=== PATIENT | male | born 1945 | race American Indian/Alaskan Native ===

== ENCOUNTER 2021-05-02 11:11 | Inpatient (IN) | payer OTHER, MEDICARE ==
[2021-05-02] MEDS ORDERED: CEFTRIAXONE 1 GM in DEXTROSE 5%-WATER - 100 ML IVPB ONE (11:55)
[2021-05-02] MEDS ORDERED: DOXYCYCLINE HYCLATE 100 MG CAPSULE PO ONE ×2 (11:55→12:15)
[2021-05-02] MEDS ORDERED: CEFTRIAXONE 1 GM/50 ML BAG ONE ×2 (12:14→12:15)
[2021-05-02] MEDS ORDERED: SODIUM CHLORIDE 0.9% 500 ML INFUS.BAG IV ONE (12:16)
[2021-05-02 12:43] LABS: BASO % 0.7 % (0-2.0); EOS % 0.1 % (0-4.5); HEMATOCRIT 36.6 % (35.4-49); HEMOGLOBIN 12.2 GM/dL (11.7-16.9); LYMPH % 10.3 % (8-40); MCH 27.8 pg (25.7-33.7); MCHC 33.3 g/dl (32.0-35.9); MEAN CELL VOLUME 83.3 fl (80-96); MEAN PLT VOLUME 8.1 fl (7.5-11.1); MONO % 14.9 % (3.8-10.2); RBC 4.39 M/mm3 (4.00-5.60); RDW 14.8 % (11.9-15.9)
[2021-05-02 12:49] LABS: CALCIUM 8.4 mg/dL (8.5-10.1); EPI CELLS >36 /uL (0-25.1); HYALINE CASTS 68 /uL (0-3.1); URINE APPEARANCE TURBID; URINE BILIRUBIN 1+ (NEGATIVE); URINE COLOR ORANGE; URINE GLUCOSE (UA) NEGATIVE (NEGATIVE); URINE KETONE TRACE (NEGATIVE); URINE LEUK ESTERASE NEGATIVE (NEGATIVE); URINE NITRITE POSITIVE (NEGATIVE); URINE PROTEIN 2+ (NEGATIVE); URINE RBC 15 /uL (0-23.9); URINE WBC 32 /uL (0-25.8)
[2021-05-02 12:50] LABS: ALBUMIN 3.7 g/dl (3.4-5.0); BLOOD UREA NITROGEN 27.1 mg/dL (7-18)
[2021-05-02 12:53] LABS: CREATININE 1.5 mg/dL (0.55-1.3)
[2021-05-02 12:54] LABS: BILIRUBIN,TOTAL 3.5 mg/dL (0.2-1); TOT PROT 7.3 g/dl (6.4-8.2)
[2021-05-02] MEDS: SODIUM CHLORIDE 1,000 ML IV SCH (13:02)
[2021-05-02] MEDS ORDERED: AZITHROMYCIN 250 MG TABLET PO ONE (14:26)
[2021-05-02 14:29] LABS: PLATELET COUNT 66 10^3/uL (134-434)
[2021-05-02] MEDS ORDERED: ATOVAQUONE 750 MG/5 ML (UNIT-DOSE PACKAGING) PO ONE (14:30)
[2021-05-02] MEDS ORDERED: AZITHROMYCIN IVPB 500 MG/250 ML BAG IVPB ONE ×2 (14:39→14:42)
[2021-05-02 15:18] LABS: PLATELET ESTIMATE DECREASED
[2021-05-02 15:52] VITALS: BMI 23.3
[2021-05-02] MEDS ORDERED: ATOVAQUONE 750 MG/5 ML (UNIT-DOSE PACKAGING) PO SCH (16:30)
[2021-05-02 17:01] LABS: URINE BACTERIA 59.7 /uL (0-1359)
[2021-05-02] MEDS: ACETAMINOPHEN 325 MG TABLET (FP) PO PRN (17:48)
[2021-05-02] MEDS ORDERED: DOXYCYCLINE HYCLATE 100 MG VIAL ONE (20:45)
[2021-05-02] MEDS ORDERED: DEXTROSE 5%-WATER 100 ML IVPB ONE (20:45)
[2021-05-02] MEDS: DOXYCYCLINE INJECTION 100 MG in DEXTROSE 5%-WATER 100 ML IVPB SCH (21:18)
[2021-05-02] MEDS: guaiFENesin/D-M SUGAR-FREE/ACLHOL-FREE 118 ML BOTTLE PO PRN (21:18)
[2021-05-02] MEDS: ATOVAQUONE 750 MG/5 ML (UNIT-DOSE PACKAGING) PO SCH (22:06)
[2021-05-03] MEDS: LEVOTHYROXINE NA 88 MCG TABLET (FP) PO SCH (06:18)
[2021-05-03 06:47] LABS: HEMATOCRIT 27.3 % (35.4-49); HEMOGLOBIN 9.2 GM/dL (11.7-16.9); MCH 27.9 pg (25.7-33.7); MCHC 33.5 g/dl (32.0-35.9); MEAN CELL VOLUME 83.3 fl (80-96); MEAN PLT VOLUME 8.8 fl (7.5-11.1); PLATELET COUNT 55 10^3/uL (134-434); RBC 3.28 M/mm3 (4.00-5.60); RDW 15.1 % (11.9-15.9); WHITE BLOOD COUNT 4.5 K/mm3 (4.0-10.0)
[2021-05-03 07:10] LABS: CALCIUM 7.4 mg/dL (8.5-10.1)
[2021-05-03 07:13] LABS: BLOOD UREA NITROGEN 23.7 mg/dL (7-18)
[2021-05-03 07:14] LABS: CREATININE 1.2 mg/dL (0.55-1.3)
[2021-05-03 07:15] LABS: BILIRUBIN,TOTAL 1.8 mg/dL (0.2-1); TOT PROT 5.4 g/dl (6.4-8.2)
[2021-05-03 08:00] LABS: ALBUMIN 2.8 g/dl (3.4-5.0)
[2021-05-03] MEDS ORDERED: metoPROLOL SUCCINATE 25 MG TAB.SR.24H (FP) PO SCH (10:00)
[2021-05-03] MEDS ORDERED: DOXYCYCLINE HYCLATE 100 MG VIAL ONE ×2 (10:07→21:16)
[2021-05-03] MEDS ORDERED: DEXTROSE 5%-WATER 100 ML IVPB ONE ×2 (10:07→21:17)
[2021-05-03] MEDS: ATOVAQUONE 750 MG/5 ML (UNIT-DOSE PACKAGING) PO SCH ×2 (10:17→17:42)
[2021-05-03] MEDS: PANTOPRAZOLE 40 MG TABLET PO SCH (10:17)
[2021-05-03] MEDS: DOXYCYCLINE INJECTION 100 MG in DEXTROSE 5%-WATER 100 ML IVPB SCH ×2 (10:17→21:23)
[2021-05-03] MEDS: AZITHROMYCIN IVPB 500 MG/250 ML BAG IVPB SCH (10:18)
[2021-05-03] MEDS ORDERED: SODIUM CHLORIDE 0.9% 500 ML INFUS.BAG IV ONE (10:58)
[2021-05-03] MEDS ORDERED: PT OWN MED DRAWER 7, Y5N ONE ×2 (13:39→20:24)
[2021-05-03] MEDS ORDERED: LACTATED RINGERS SOLUTION 1000 ML INFUS.BAG IV ONE (15:12)
[2021-05-03] MEDS: LACTATED RINGERS SOLUTION 1,000 ML/1,000 ML INFUS.BAG IV SCH ×2 (15:40→22:57)
[2021-05-03] MEDS: SODIUM CHLORIDE 1,000 ML IV SCH (17:02)
[2021-05-03] MEDS: ACETAMINOPHEN 325 MG TABLET (FP) PO PRN (20:30)
[2021-05-03] MEDS: guaiFENesin/D-M SUGAR-FREE/ACLHOL-FREE 118 ML BOTTLE PO PRN (21:24)
[2021-05-04] MEDS: ACETAMINOPHEN 325 MG TABLET (FP) PO PRN ×2 (02:10→14:52)
[2021-05-04] MEDS: guaiFENesin/D-M SUGAR-FREE/ACLHOL-FREE 118 ML BOTTLE PO PRN ×2 (02:55→13:02)
[2021-05-04] MEDS: LACTATED RINGERS SOLUTION 1,000 ML/1,000 ML INFUS.BAG IV SCH ×2 (06:24→16:08)
[2021-05-04] MEDS: LEVOTHYROXINE NA 88 MCG TABLET (FP) PO SCH (06:24)
[2021-05-04] MEDS ORDERED: PT OWN MED DRAWER 7, Y5N ONE ×6 (06:50→21:31)
[2021-05-04 07:34] LABS: HEMATOCRIT 30.1 % (35.4-49); HEMOGLOBIN 9.9 GM/dL (11.7-16.9); MCH 27.9 pg (25.7-33.7); MEAN CELL VOLUME 84.4 fl (80-96); MEAN PLT VOLUME 9.3 fl (7.5-11.1); PLATELET COUNT 56 10^3/uL (134-434); RBC 3.57 M/mm3 (4.00-5.60); RDW 15.4 % (11.9-15.9); WHITE BLOOD COUNT 4.1 K/mm3 (4.0-10.0)
[2021-05-04 07:58] LABS: CALCIUM 7.5 mg/dL (8.5-10.1)
[2021-05-04 07:59] LABS: ALBUMIN 2.8 g/dl (3.4-5.0); BLOOD UREA NITROGEN 22.8 mg/dL (7-18)
[2021-05-04 08:02] LABS: CREATININE 1.1 mg/dL (0.55-1.3)
[2021-05-04 08:04] LABS: BILIRUBIN,TOTAL 2.2 mg/dL (0.2-1); TOT PROT 5.7 g/dl (6.4-8.2)
[2021-05-04] MEDS: ATOVAQUONE 750 MG/5 ML (UNIT-DOSE PACKAGING) PO SCH ×2 (09:17→16:58)
[2021-05-04] MEDS: AZITHROMYCIN IVPB 500 MG/250 ML BAG IVPB SCH (09:19)
[2021-05-04] MEDS ORDERED: DOXYCYCLINE HYCLATE 100 MG VIAL ONE ×2 (10:07→21:25)
[2021-05-04] MEDS ORDERED: DEXTROSE 5%-WATER 100 ML IVPB ONE ×2 (10:08→21:26)
[2021-05-04] MEDS: FOLIC ACID 1 MG TABLET (FP) PO SCH (10:14)
[2021-05-04] MEDS: PANTOPRAZOLE 40 MG TABLET PO SCH (10:14)
[2021-05-04] MEDS: DOXYCYCLINE INJECTION 100 MG in DEXTROSE 5%-WATER 100 ML IVPB SCH ×2 (10:14→21:28)
[2021-05-04] MEDS: MULTIVITAMINS (DAILY MVI) TABLET (FP) PO SCH (13:40)
[2021-05-04] MEDS: guaiFENesin/D-M SUGAR-FREE/ACLHOL-FREE 5 ML UNIT DOSE PO SCH (21:33)
[2021-05-05] MEDS: LACTATED RINGERS SOLUTION 1,000 ML/1,000 ML INFUS.BAG IV SCH ×3 (01:10→09:47)
[2021-05-05] MEDS: LEVOTHYROXINE NA 88 MCG TABLET (FP) PO SCH (06:25)
[2021-05-05 07:33] LABS: BASO % 0.7 % (0-2.0); EOS % 0.7 % (0-4.5); HEMATOCRIT 26.1 % (35.4-49); HEMOGLOBIN 8.6 GM/dL (11.7-16.9); LYMPH % 27.8 % (8-40); MCH 27.2 pg (25.7-33.7); MCHC 32.8 g/dl (32.0-35.9); MEAN PLT VOLUME 10.2 fl (7.5-11.1); MONO % 17.9 % (3.8-10.2); NEUT % 52.9 % (42.8-82.8); PLATELET COUNT 55 10^3/uL (134-434); RBC 3.14 M/mm3 (4.00-5.60); RDW 15.6 % (11.9-15.9); WHITE BLOOD COUNT 3.8 K/mm3 (4.0-10.0)
[2021-05-05 07:49] LABS: ALBUMIN 2.4 g/dl (3.4-5.0); BLOOD UREA NITROGEN 18.8 mg/dL (7-18); CALCIUM 7.5 mg/dL (8.5-10.1)
[2021-05-05 07:53] LABS: CREATININE 1.1 mg/dL (0.55-1.3)
[2021-05-05 07:54] LABS: BILIRUBIN,TOTAL 1.8 mg/dL (0.2-1); TOT PROT 5.2 g/dl (6.4-8.2)
[2021-05-05] MEDS: ATOVAQUONE 750 MG/5 ML (UNIT-DOSE PACKAGING) PO SCH ×2 (08:44→17:01)
[2021-05-05] MEDS ORDERED: DEXTROSE 5%-WATER 100 ML IVPB ONE ×2 (09:03→21:08)
[2021-05-05] MEDS ORDERED: DOXYCYCLINE HYCLATE 100 MG VIAL ONE ×2 (09:03→21:08)
[2021-05-05] MEDS: PANTOPRAZOLE 40 MG TABLET PO SCH (09:10)
[2021-05-05] MEDS: DOXYCYCLINE INJECTION 100 MG in DEXTROSE 5%-WATER 100 ML IVPB SCH ×2 (09:10→21:17)
[2021-05-05] MEDS: FOLIC ACID 1 MG TABLET (FP) PO SCH (09:10)
[2021-05-05] MEDS: MULTIVITAMINS (DAILY MVI) TABLET (FP) PO SCH (09:10)
[2021-05-05 09:40] LABS: ANISOCYTOSIS 0; MACROCYTOSIS 0; PLATELET ESTIMATE DECREASED
[2021-05-05] MEDS: guaiFENesin/D-M SUGAR-FREE/ACLHOL-FREE 5 ML UNIT DOSE PO SCH ×2 (09:48→21:17)
[2021-05-05] MEDS: AZITHROMYCIN IVPB 500 MG/250 ML BAG IVPB SCH (10:22)
[2021-05-06] MEDS: LEVOTHYROXINE NA 88 MCG TABLET (FP) PO SCH (06:06)
[2021-05-06 07:05] LABS: EOS % 2.9 % (0-4.5); HEMATOCRIT 28.3 % (35.4-49); HEMOGLOBIN 9.3 GM/dL (11.7-16.9); LYMPH % 31.6 % (8-40); MCH 27.2 pg (25.7-33.7); MCHC 32.8 g/dl (32.0-35.9); MEAN CELL VOLUME 83.1 fl (80-96); MEAN PLT VOLUME 9.3 fl (7.5-11.1); MONO % 17.9 % (3.8-10.2); NEUT % 46.6 % (42.8-82.8); PLATELET COUNT 72 10^3/uL (134-434); RBC 3.41 M/mm3 (4.00-5.60); RDW 15.9 % (11.9-15.9); RETICULOCYTES 1.11 % (0.5-1.5); WHITE BLOOD COUNT 3.9 K/mm3 (4.0-10.0)
[2021-05-06 07:20] LABS: CALCIUM 8.1 mg/dL (8.5-10.1)
[2021-05-06 07:21] LABS: ALBUMIN 2.6 g/dl (3.4-5.0); BLOOD UREA NITROGEN 16.7 mg/dL (7-18)
[2021-05-06 07:25] LABS: BILIRUBIN,TOTAL 1.7 mg/dL (0.2-1); TOT PROT 5.8 g/dl (6.4-8.2)
[2021-05-06] MEDS: LACTATED RINGERS SOLUTION 1,000 ML/1,000 ML INFUS.BAG IV SCH (08:47)
[2021-05-06] MEDS: ATOVAQUONE 750 MG/5 ML (UNIT-DOSE PACKAGING) PO SCH ×2 (08:48→17:35)
[2021-05-06] MEDS ORDERED: DEXTROSE 5%-WATER 100 ML IVPB ONE ×2 (09:10→21:07)
[2021-05-06] MEDS ORDERED: DOXYCYCLINE HYCLATE 100 MG VIAL ONE ×2 (09:10→21:07)
[2021-05-06 09:26] LABS: ANISOCYTOSIS 1+; MACROCYTOSIS 0; PLATELET ESTIMATE DECREASED
[2021-05-06] MEDS: guaiFENesin/D-M SUGAR-FREE/ACLHOL-FREE 5 ML UNIT DOSE PO SCH ×2 (09:37→21:29)
[2021-05-06] MEDS: DOXYCYCLINE INJECTION 100 MG in DEXTROSE 5%-WATER 100 ML IVPB SCH ×2 (09:38→21:29)
[2021-05-06] MEDS: PANTOPRAZOLE 40 MG TABLET PO SCH (09:38)
[2021-05-06] MEDS: MULTIVITAMINS (DAILY MVI) TABLET (FP) PO SCH (09:38)
[2021-05-06] MEDS: FOLIC ACID 1 MG TABLET (FP) PO SCH (09:38)
[2021-05-06] MEDS: AZITHROMYCIN IVPB 500 MG/250 ML BAG IVPB SCH (09:45)
[2021-05-07 06:31] LABS: BASO % 1.2 % (0-2.0); EOS % 3.1 % (0-4.5); HEMATOCRIT 28.6 % (35.4-49); HEMOGLOBIN 9.5 GM/dL (11.7-16.9); LYMPH % 21.8 % (8-40); MCH 27.3 pg (25.7-33.7); MEAN CELL VOLUME 82.8 fl (80-96); MONO % 20.2 % (3.8-10.2); NEUT % 53.7 % (42.8-82.8); PLATELET COUNT 93 10^3/uL (134-434); RBC 3.46 M/mm3 (4.00-5.60); RDW 15.4 % (11.9-15.9); RETICULOCYTES 1.43 % (0.5-1.5); WHITE BLOOD COUNT 3.8 K/mm3 (4.0-10.0)
[2021-05-07] MEDS: LEVOTHYROXINE NA 88 MCG TABLET (FP) PO SCH (06:43)
[2021-05-07 06:56] LABS: ALBUMIN 2.5 g/dl (3.4-5.0); CALCIUM 7.7 mg/dL (8.5-10.1)
[2021-05-07 07:01] LABS: BILIRUBIN,TOTAL 1.6 mg/dL (0.2-1); TOT PROT 5.8 g/dl (6.4-8.2)
[2021-05-07] MEDS ORDERED: PT OWN MED DRAWER 7, Y5N ONE ×4 (07:01→09:55)
[2021-05-07] MEDS ORDERED: DEXTROSE 5%-WATER 100 ML IVPB ONE (08:41)
[2021-05-07] MEDS ORDERED: DOXYCYCLINE HYCLATE 100 MG VIAL ONE (08:41)
[2021-05-07] MEDS: DOXYCYCLINE INJECTION 100 MG in DEXTROSE 5%-WATER 100 ML IVPB SCH (09:30)
[2021-05-07] MEDS: ATOVAQUONE 750 MG/5 ML (UNIT-DOSE PACKAGING) PO SCH (09:30)
[2021-05-07] MEDS: PANTOPRAZOLE 40 MG TABLET PO SCH (09:31)
[2021-05-07] MEDS: MULTIVITAMINS (DAILY MVI) TABLET (FP) PO SCH (09:31)
[2021-05-07] MEDS: FOLIC ACID 1 MG TABLET (FP) PO SCH (09:31)
[2021-05-07] MEDS: AZITHROMYCIN IVPB 500 MG/250 ML BAG IVPB SCH (09:31)
[2021-05-07] MEDS: guaiFENesin/D-M SUGAR-FREE/ACLHOL-FREE 5 ML UNIT DOSE PO SCH (09:31)
[2021-05-07 10:06] LABS: ANISOCYTOSIS 1+; MACROCYTOSIS 0; OVALOCYTE 1+; PLATELET ESTIMATE DECREASED
[2021-05-07 11:12] VITALS: BP 104/74; PULSE 80; TEMP 97.8
[2021-05-11 16:08] LABS: METHYLMALONIC ACID- 196 nmol/L (0-378)
== END 2021-05-07 14:01 | disposition home or self-care (01) | DRG 868 ==
LOC: JER 11:11 → JERBED 13:59 → J4S 15:25
PROVIDERS: ADMIT Internal Medicine; ATTEND Internal Medicine
DX: B60.00 Babesiosis, unspecified (principal); N17.9 Acute kidney failure, unspecified; D58.9 Hereditary hemolytic anemia, unspecified; D69.6 Thrombocytopenia, unspecified; I10 Essential (primary) hypertension; E78.5 Hyperlipidemia, unspecified; E03.9 Hypothyroidism, unspecified
CPT/HCPCS: 36415; 71045-TC-FY; 76705-TC; 80053; 81003; 82607; 82746; 82930; 83010; 83615; 83921; 85025; 85027; 85045; 86618; 86757; 87040; 87086; 87207; 87798; 87804; 93005; 93010; 99285-25; C9803; U0003; U0005